=== PATIENT | female | born 1940 | race Caucasian/White ===

== ENCOUNTER 2021-09-11 16:48 | Inpatient (IN) | payer OTHER, MEDICAID ==
[~2021-09-11] VITALS: Ht 157.5 cm; Wt 74.5 kg
[2021-09-11] MEDS ORDERED: SODIUM CHLORIDE 0.9% 250 ML IV ONE (17:30)
[2021-09-11] MEDS ORDERED: LABETALOL 5MG/ML SYR 20 MG/4 ML SYRINGE IV ONE (17:30)
[2021-09-11 17:40] LABS: BG BASE EXCESS -2.5 mmol/L (-2.0-2.0); BG CARBOXYHEMOGLOBIN 0.3 % (0.5-1.5); BG DEOXYHEMOGLOBIN 4.5 % (0.0-5.0); BG FRACTION INSPIRED OXYGEN 21; BG HCO3 ACT 19.9 mmol/L (22.0-26.0); BG METHEMOGLOBIN 0.1 % (0.0-1.5); BG OXYGEN SATURATION 95.5 % (92.0-98.5); BG OXYHEMOGLOBIN 95.1 % (94.0-97.0); BG PCO2 27.4 mmHg (35.0-45.0); BG PH 7.479 (7.350-7.450); BG PO2 71.4 mmHg (75.0-100.0); BG SAMPLE SITE RIGHT RADIAL; BG TOTAL HEMOGLOBIN 11.5 g/dL (12.0-18.0); BG TOTAL RESPIRATORY RATE 20 b/min; BG VENT MODE ROOM AIR
[2021-09-11] MEDS ORDERED: ACETAMINOPHEN 325MG TABLET PO ONE (17:45)
[2021-09-11] MEDS ORDERED: SODIUM CHLORIDE 0.9% 1000ML BAG (SEPSIS BOLUS) IV ONE (17:45)
[2021-09-11 17:54] LABS: HEMATOCRIT. 34.4 % (36.0-48.0); HEMOGLOBIN. 11.3 g/dL (12.0-16.0); MEAN CORPUSCULAR HEMOGLOBIN 29.7 pg (28.0-32.0); MEAN PLATELET VOLUME 8.6 fl (7.4-10.4); PLATELET 206 x1000/uL (130-400); RED BLOOD CELL COUNT 3.82 mill/uL (4.2-5.4); RED CELL DISTRIBUTION WIDTH 14.1 % (11.6-14.6)
[2021-09-11 17:57] LABS: CHLORIDE 98 mEq/L (98-107)
[2021-09-11 18:06] LABS: BETA HYDROXYBUTYRATE 2.2 mMol/L (0.0-0.3)
[2021-09-11] MEDS ORDERED: FUROSEMIDE 40MG/4ML VIAL IVP ONE (18:15)
[2021-09-11 18:24] LABS: PLATELET ESTIMATE NORMAL
[2021-09-11] MEDS ORDERED: CEFTRIAXONE 1 G PREMIX 50 ML IV ONE (18:45)
[2021-09-11 18:58] LABS: CLARITY URINE CLOUDY (CLEAR); COLOR URINE YELLOW (YELLOW); KETONES URINE 2+ (NEGATIVE); LEUKOCYTE ESTERASE URINE NEGATIVE (NEGATIVE); NITRITE URINE POSITIVE (NEGATIVE); OCCULT BLOOD URINE 2+ (NEGATIVE); PH URINE 5.5 (4.5-8.0); PROTEIN URINE 2+ (NEGATIVE); SPECIFIC GRAVITY URINE 1.021 (1.005-1.030); UROBILINOGEN URINE 0.2 E.U./dL (0.2-1.0)
[2021-09-11 19:24] LABS: INR 1.1; PROTHROMBIN TIME 11.4 sec (9.6-11.0)
[2021-09-11] MEDS ORDERED: INSULIN REGULAR (HUMULIN R) 300UNITS/3ML VIAL IV ONE (19:45)
[2021-09-11 23:00] VITALS: BP 153/75
[2021-09-12] VITALS (13 sets, daily range): BP systolic 107–169; BP diastolic 42–84
[2021-09-12] MEDS ORDERED: NITROGLYCERIN 0.4MG TABLET SL SL PRN
[2021-09-12] MEDS ORDERED: TRAMADOL 50MG TABLET PO PRN
[2021-09-12] MEDS ORDERED: KETOROLAC 15MG/ML VIAL IV PRN
[2021-09-12] MEDS ORDERED: ACETAMINOPHEN 325MG TABLET PO PRN
[2021-09-12] MEDS ORDERED: CLONIDINE 0.1MG TABLET PO PRN
[2021-09-12] MEDS ORDERED: DOCUSATE SODIUM 100MG CAPSULE PO PRN
[2021-09-12] MEDS ORDERED: GUAIFENESIN 200MG/10ML SUGAR FREE UDC PO PRN
[2021-09-12] MEDS ORDERED: DEXTROSE 50% WATER 50ML SYRINGE IV PRN
[2021-09-12] MEDS ORDERED: MAGNESIUM/ALUMINUM HYDROXIDE/SIMETHICONE 30ML UDC PO PRN
[2021-09-12] MEDS ORDERED: IPRATROPIUM/ALBUTEROL 0.5-3(2.5)MG/3ML NEB NEB PRN
[2021-09-12] MEDS ORDERED: NALOXONE HCL 0.4 MG/ML 1ML VIAL IV PRN (00:15)
[2021-09-12] MEDS ORDERED: SODIUM POLYSTYRENE SULFONATE 15 G/60 ML BOT PO SCH (01:00)
[2021-09-12] MEDS: ENOXAPARIN 80MG/0.8ML SYR SUBCUT SCH ×2 (01:00→12:28)
[2021-09-12] MEDS ORDERED: LEVOFLOXACIN 500MG PREMIX 100 ML IV SCH (01:00)
[2021-09-12] MEDS: ACETAMINOPHEN 325MG TABLET PO PRN ×2 (01:20→21:43)
[2021-09-12] MEDS: INSULIN GLARGINE UD 100 UNITS/ML SYR SUBCUT SCH ×2 (01:20→21:45)
[2021-09-12 05:29] LABS: METHADONE URINE SCREEN NEGATIVE (NEGATIVE); OPIATES URINE SCREEN NEGATIVE (NEGATIVE); PHENCYCLIDINE URINE SCREEN NEGATIVE (NEGATIVE)
[2021-09-12 05:30] LABS: *AMPHETAMINES SCREEN URINE NEGATIVE (NEGATIVE); *BARBITURATES SCREEN URINE NEGATIVE (NEGATIVE); *BENZODIAZEPINES SCREEN URINE NEGATIVE (NEGATIVE); CANNABINOID URINE SCREEN NEGATIVE (NEGATIVE)
[2021-09-12 05:31] LABS: *COCAINE SCREEN URINE NEGATIVE (NEGATIVE)
[2021-09-12 07:34] LABS: HEMATOCRIT. 29.8 % (36.0-48.0); HEMOGLOBIN. 10.3 g/dL (12.0-16.0); MEAN CORPUSCULAR HEMOGLOBIN 30.7 pg (28.0-32.0); MEAN CORPUSCULAR VOLUME 88.7 fL (81.0-99.0); MEAN PLATELET VOLUME 8.5 fl (7.4-10.4); PLATELET 186 x1000/uL (130-400); RED BLOOD CELL COUNT 3.36 mill/uL (4.2-5.4); RED CELL DISTRIBUTION WIDTH 13.8 % (11.6-14.6)
[2021-09-12] MEDS: BLOOD SUGAR DIAGNOSTIC STRIP TEST SCH ×4 (07:35→21:44)
[2021-09-12 07:56] LABS: CHLORIDE 100 mEq/L (98-107)
[2021-09-12 08:03] LABS: PHOSPHORUS 2.4 mg/dL (2.5-4.9); TOTAL IRON BINDING CAPACITY 226 ug/dL (250-450)
[2021-09-12 08:04] LABS: CREATINE KINASE 178 IU/L (26-192)
[2021-09-12 08:06] LABS: CREATINE KINASE MB FRACTION 1.2 ng/mL (0.5-3.6)
[2021-09-12 08:18] LABS: FOLIC ACID (FOLATE) SERUM 9.3 ng/mL (>5.38)
[2021-09-12] MEDS: METOPROLOL TARTRATE 25MG TABLET PO SCH ×2 (08:25→21:43)
[2021-09-12] MEDS: PANTOPRAZOLE SODIUM 40 MG/VIAL IV SCH (08:28)
[2021-09-12] MEDS: INSULIN LISPRO 100 UNITS/ML SUBCUT SCH ×4 (08:29→21:45)
[2021-09-12] MEDS ORDERED: INSU300I SQ (11:32)
[2021-09-12] MEDS ORDERED: OLME1TAB88 PO (11:32)
[2021-09-12] MEDS ORDERED: SITA1TAB6 PO (11:32)
[2021-09-12 13:27] LABS: PLATELET ESTIMATE NORMAL
[2021-09-12] MEDS: FERROUS SULFATE 325MG TABLET PO SCH (17:53)
[2021-09-12 18:03] LABS: CREATINE KINASE 182 IU/L (26-192)
[2021-09-12 18:05] LABS: CREATINE KINASE MB FRACTION < 1.0 ng/mL (0.5-3.6)
[2021-09-12] MEDS ORDERED: CEFTRIAXONE 1,000 MG in DEXTROSE 5% WATER 50 ML IV SCH (20:00)
[2021-09-13] VITALS (10 sets, daily range): BP systolic 135–166; BP diastolic 56–74
[2021-09-13] MEDS: LEVOFLOXACIN 250MG PREMIX 50 ML IV SCH (01:53)
[2021-09-13] MEDS: ENOXAPARIN 80MG/0.8ML SYR SUBCUT SCH (01:54)
[2021-09-13] MEDS: ONDANSETRON HCL 4MG/2ML INJ IV PRN (04:14)
[2021-09-13] MEDS: BLOOD SUGAR DIAGNOSTIC STRIP TEST SCH ×4 (07:37→20:45)
[2021-09-13 08:25] LABS: BASOPHILS % 0.4 % (0.0-2.0); EOSINOPHILS % 0.1 % (0.0-5.0); HEMATOCRIT. 32.2 % (36.0-48.0); HEMOGLOBIN. 11.1 g/dL (12.0-16.0); LYMPHOCYTES % 8.4 % (20.0-50.0); MEAN CORPUSCULAR HEMOGLOBIN 30.5 pg (28.0-32.0); MEAN CORPUSCULAR VOLUME 88.1 fL (81.0-99.0); MEAN PLATELET VOLUME 8.6 fl (7.4-10.4); MONOCYTES % 12.9 % (2.0-8.0); NEUTROPHILS % 78.2 % (40.0-76.0); PLATELET 205 x1000/uL (130-400); RED BLOOD CELL COUNT 3.65 mill/uL (4.2-5.4); RED CELL DISTRIBUTION WIDTH 13.8 % (11.6-14.6)
[2021-09-13] MEDS: INSULIN LISPRO 100 UNITS/ML SUBCUT SCH ×4 (08:28→20:46)
[2021-09-13] MEDS: PANTOPRAZOLE SODIUM 40 MG/VIAL IV SCH (08:29)
[2021-09-13] MEDS: METOPROLOL TARTRATE 25MG TABLET PO SCH ×2 (08:29→20:45)
[2021-09-13] MEDS: FERROUS SULFATE 325MG TABLET PO SCH ×3 (08:29→17:27)
[2021-09-13] MEDS: ASPIRIN 81MG EC TABLET PO SCH (10:17)
[2021-09-13] MEDS ORDERED: POTASSIUM CHLORIDE INJ 60 MEQ in DEXT 5% WATER 250 ML IV ONE (10:30)
[2021-09-13] MEDS: KCL 20MEQ/100ML PREMIX 100 ML IV SCH ×3 (11:21→15:41)
[2021-09-13] MEDS: ACETAMINOPHEN 325MG TABLET PO PRN (11:59)
[2021-09-13] MEDS: INSULIN GLARGINE UD 100 UNITS/ML SYR SUBCUT SCH (20:52)
[2021-09-13] MEDS ORDERED: ENOXAPARIN 40MG/0.4ML SYR SUBCUT SCH (21:00)
[2021-09-14] MEDS: LEVOFLOXACIN 250MG PREMIX 50 ML IV SCH (01:20)
[2021-09-14 03:55] VITALS: BP 165/65
[2021-09-14 07:16] LABS: BASOPHILS % 0.4 % (0.0-2.0); EOSINOPHILS % 0.5 % (0.0-5.0); HEMATOCRIT. 31.4 % (36.0-48.0); HEMOGLOBIN. 10.8 g/dL (12.0-16.0); LYMPHOCYTES % 12.1 % (20.0-50.0); MEAN CORPUSCULAR HEMOGLOBIN 30.1 pg (28.0-32.0); MEAN CORPUSCULAR VOLUME 87.4 fL (81.0-99.0); MEAN PLATELET VOLUME 8.6 fl (7.4-10.4); MONOCYTES % 14.7 % (2.0-8.0); NEUTROPHILS % 72.3 % (40.0-76.0); PLATELET 243 x1000/uL (130-400); RED BLOOD CELL COUNT 3.59 mill/uL (4.2-5.4)
[2021-09-14] MEDS: FERROUS SULFATE 325MG TABLET PO SCH ×3 (07:58→17:45)
[2021-09-14 08:00] VITALS: BP 155/60
[2021-09-14] MEDS: PANTOPRAZOLE SODIUM 40 MG/VIAL IV SCH (08:00)
[2021-09-14] MEDS: INSULIN LISPRO 100 UNITS/ML SUBCUT SCH ×3 (08:00→17:45)
[2021-09-14] MEDS: ASPIRIN 81MG EC TABLET PO SCH (08:00)
[2021-09-14] MEDS: METOPROLOL TARTRATE 25MG TABLET PO SCH (08:01)
[2021-09-14] MEDS: BLOOD SUGAR DIAGNOSTIC STRIP TEST SCH ×3 (08:02→16:57)
[2021-09-14] MEDS: ONDANSETRON HCL 4MG/2ML INJ IV PRN ×2 (08:24→15:06)
[2021-09-14 12:00] VITALS: BP 152/66
[2021-09-14 16:00] VITALS: BP 162/56
[2021-09-14 18:26] VITALS: BP 160/65
[2021-09-14] MEDS ORDERED: ATORVASTATIN CALCIUM 20MG TABLET PO SCH (21:00)
== END 2021-09-14 19:00 | disposition home or self-care (01) | DRG 871 ==
LOC: ER 16:48 → EDBEDREQ 19:03 → EDBEDREQTM 19:03 → ENRESERV 21:07 → 5EST 22:56
PROVIDERS: ADMIT Internal Medicine; ATTEND Internal Medicine
DX: A41.50 Gram-negative sepsis, unspecified (principal); I21.4 Non-ST elevation (NSTEMI) myocardial infarction; E44.0 Moderate protein-calorie malnutrition; I50.40 Unspecified combined systolic (congestive) and diastolic (congestive) heart failure; N12 Tubulo-interstitial nephritis, not specified as acute or chronic; E87.1 Hypo-osmolality and hyponatremia; E11.65 Type 2 diabetes mellitus with hyperglycemia; E78.00 Pure hypercholesterolemia, unspecified; I44.7 Left bundle-branch block, unspecified; E78.5 Hyperlipidemia, unspecified; D64.9 Anemia, unspecified; I11.0 Hypertensive heart disease with heart failure; Z20.822 Contact with and (suspected) exposure to COVID-19; E87.5 Hyperkalemia; Z82.49 Family history of ischemic heart disease and other diseases of the circulatory system; Z88.5 Allergy status to narcotic agent; Z79.899 Other long term (current) drug therapy; Z68.30 Body mass index [BMI] 30.0-30.9, adult; Z79.82 Long term (current) use of aspirin; Z79.4 Long term (current) use of insulin; Z79.84 Long term (current) use of oral hypoglycemic drugs; Z90.49 Acquired absence of other specified parts of digestive tract
CPT/HCPCS: 36415; 36600; 71045; 74176; 80048; 80053; 80061; 80305; 81003; 82010; 82375; 82550; 82553; 82607; 82746; 82805; 82962; 83036; 83540; 83550; 83605; 83735; 83880; 83930; 83935; 84100; 84132; 84443; 84484; 85025; 87077; 87186; 87426; 93005; 93306; 93970; 97162; 99291; C9113; J0696; J1650; J1815; J1940; J1956; J2405; J3480; J3490; J7030; J7050; J7060